=== PATIENT | female | born 1965 | race Two or more races ===

== ENCOUNTER 2017-10-01 13:11 | Outpatient (CLI) | payer MEDICARE, OTHER | END 2017-10-01 23:59 | disposition home or self-care (01) | LOC: WOU 13:11 | PROVIDERS: ATTEND Podiatrist Foot & Ankle Surgery | DX: M79.671 Pain in right foot (principal); M79.672 Pain in left foot; Y33.XXXS Other specified events, undetermined intent, sequela; M21.612 Bunion of left foot; M21.611 Bunion of right foot; M20.42 Other hammer toe(s) (acquired), left foot; M20.41 Other hammer toe(s) (acquired), right foot; Z87.891 Personal history of nicotine dependence; M79.7 Fibromyalgia | CPT/HCPCS: G0463 ==

== ENCOUNTER 2017-10-07 10:37 | Outpatient (CLI) | payer MEDICARE, OTHER | END 2017-10-07 23:59 | disposition home or self-care (01) | LOC: RAD 10:37 | PROVIDERS: ATTEND Podiatrist Foot & Ankle Surgery | DX: M20.12 Hallux valgus (acquired), left foot (principal); M19.072 Primary osteoarthritis, left ankle and foot; M25.775 Osteophyte, left foot | CPT/HCPCS: 73610-TC; 73630-TC ==